=== PATIENT | female | born 1960 | race Caucasian/White ===

== ENCOUNTER 2023-12-15 09:14 | Outpatient (AMB) | payer MEDICAID, SELFPAY ==
--- NOTE | 2023-12-15 09:20 | MHC.OFFVIS ---
Intake Vital Signs 12/15/23 09:24 Height 5 ft 5 in Weight 125 lb 10.616 oz BMI 20.9 BP 142/67 H Blood Pressure Location Lt brachial Position Sitting Pulse 59 Intake Visit Reasons: Colonoscopy screening/ abd pain Intake Note: Pal presents in the office as a new patient for a colo screening w/ abdominal pains CC: States that she is having pains in the lower abdomen. She has constipation at times - She has hemmoroid so sometimes she has blood - internal and external. 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 She does not want anesthesia C/O lower abdominal pain for many years and hemorrhoids uses cream BM-1-2 QD- hemorrhoids cause bleeding Appetite is fair- pepcid - doesn't want medication or EGD- too afraid No nausea, vomiting hematemesis fever or PFSH Surgical History Hx of colonoscopy Family History (Updated 12/15/23 @ 10:01 by Iman Mcdonough PA-C) Unknown No problems noted. Social History Household Members Other:: lives alone Alcohol intake: never Patient Tobacco Use Status: Never used Tobacco Current occupational status: disabled Review of Systems Const All systems reviewed & are unremarkable except as noted in HPI and below ENT Denies dysphagia Card Denies chest pain and Denies dyspnea Resp Denies dyspnea GI Reports abdominal pain, Reports hematochezia, Reports constipation, Denies dysphagia, Reports heartburn, Denies nausea and Denies vomiting Musc Reports arthralgias Psych Reports anxiety Physical Exam Vital Signs: Last Vital Signs Pulse 59 12/15/23 09:24 BP 142/67 H 12/15/23 09:24 BMI result Body Mass Index 20.9 Const General: comfortable, acute distress and anxious Orientation/consciousness: patient oriented x3 Limitations: language barrier Eyes Sclerae: sclerae normal Resp Effort & Inspection: normal respiratory effort and able to speak in complete sentences Auscultation: clear to auscultation bilaterally, no rales, no rhonchi and no wheezes Cardio Rate: regular rate Rhythm: regular rhythm Heart sounds: S1 normal heart sound present and S2 normal heart sound present Skin General skin exam: no rashes or lesions noted Neuro General: patient oriented x3 Extrem General: Yes full ROM Psych Speech and movement: Slowed speech present (Psych) Affect: Anxious affect present Attitude: cooperative Assessment & Plan Assessment & Plan (1) Abdominal pain: Comment: Diffuse, Code(s): R10.9 - Unspecified abdominal pain Plan: cbc cmp (2) Chronic constipation: Code(s): K59.09 - Other constipation Plan: bowel regimen HFD colonoscopy (3) Heartburn: Comment: declined EGD- discussed risk- missing malignancy- reconsidered Discussed procedure rare risks Code(s): R12 - Heartburn Plan: monitor sx EGD- pt reconsidered (4) Hemorrhoids: Code(s): K64.9 - Unspecified hemorrhoids Plan: Avoid straining Maintain high-fiber Rectal cream Plan Colonoscopy EGD MG prep meds-ok Needs 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 Panel Today K59.09 - Other constipation, R10.9 - Unspecified abdominal pain, R12 - Heartburn Thyroid Stimulating Hormone Today R19.8 - Other specified symptoms and signs involving the digestive system and abdomen EGD/[place] [facility] - GI Use Only Today K59.09 - Other constipation, R10.9 - Unspecified abdominal pain, R12 - Heartburn Complete Blood Count Auto Diff Today K59.09 - Other constipation, R10.9 - Unspecified abdominal pain, R12 - Heartburn Medications: New docusate sodium (Colace) 200 mg (2 x 100 mg) PO BEDTIME 60 caps 5RF polyethylene glycol 3350 (Miralax) 17 grams PO DAILY 30 days 510 grams 6RF hydrocortisone 2.5% (Proctozone-HC) apply [place] BID prn 1 appl [place] BID PRN 30 grams 3RF hemorrhoids bisacodyl (Dulcolax (bisacodyl)) Day before procedure @ 12 noon Take 4 tablets by mouth followed by large glass of water 20 mg (4 x 5 mg) PO ONCE 1 day PRN 4 tabs 0RF colonoscopy prep Z12.11 - Encounter for screening for malignant neoplasm of colon polyethylene glycol 3350 (Miralax) Take as directed by mouth the day before your procedure. 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
[2023-12-15 09:24] VITALS: BP 142/67; PULSE 59; BMI 20.9
== END 2023-12-15 10:23 | disposition home or self-care (01) ==
PROVIDERS: PCP Physician Assistant Medical; Visit Provider Physician Assistant
DX: R10.9 Unspecified abdominal pain (principal); K59.09 Other constipation; R12 Heartburn; K64.9 Unspecified hemorrhoids
CPT/HCPCS: 99204

== ENCOUNTER → 2023-12-15 09:14 | Outpatient (BNVA) | payer MEDICAID, SELFPAY | PROVIDERS: PCP Physician Assistant Medical; Visit Provider Physician Assistant | DX: R10.9 Unspecified abdominal pain (principal); K59.09 Other constipation; R12 Heartburn; K64.9 Unspecified hemorrhoids | CPT/HCPCS: 99212 ==

== ENCOUNTER 2024-04-23 10:20 | Day surgery (SDC) | payer MEDICAID, SELFPAY ==
[2024-04-19 11:51] VITALS: BMI 20.8
[2024-04-23] MEDS: Lactated Ringers 1,000 ML 50 ML IVCONT (10:47)
--- NOTE | 2024-04-23 10:58 | P.CONAN_ITS ---
[facility] Active Problems Active Problems: All Active Problems Hemorrhoids (Acute) Arthritis (Acute) Heartburn (Acute) Chronic constipation (Acute) Abdominal pain (Acute) Family History Family History Unknown No problems noted. Surgical History Surgical History Hx of colonoscopy History of Problems with Anesthesia: No Social History Social History Household Members Other:: lives alone Alcohol intake: never Patient Tobacco Use Status: Never used Tobacco Are you DNR?: No Advance Directives: No Advance Directives Information Provided: Yes Nutrition Risks: No Nutritional Risk Current occupational status: disabled Meds Allergies Allergy/AdvReac Type Severity Reaction Status Date / Time No Known Allergies Allergy Verified 12/15/23 09:25 Active Medications: Current Medications Lactated Ringer's (Lr) 1,000 mls @ 50 mls/hr IVCONT .Q20H KIKI Last Admin: 04/23/24 10:47 Dose: 50 mls/hr Home Medications ?Medication ?Instructions ?Recorded ?Confirmed ?Last Taken ?Type celecoxib 50 mg capsule 50 mg PO BID 12/15/23 Unknown History famotidine 20 mg tablet (Pepcid) 20 mg PO QDAY 12/15/23 Unknown History Exam Height,Weight and Vital Signs: Height 5 ft 5 in Weight 56.699 kg Airway Mallampati Class: II (globally poor dentition) TM Dist: >3cm Neck ROM: Full Loose/Missing/Broken Teeth: Yes and Upper Heart: RRR Lungs: CTA Assessment and Plan Assessment Anesthesia Assessment: Anesthesia Plan Discussed and Chart Reviewed Final Anesthetic Review History of Problems with Anesthesia: No NPO: Yes ASA Class: II Final Preanesthetic Review: Meds/Allgs Chart Reviewed, Consent Obtained/Reviewed and Anes Risks/Benef Reviewed Patient Risk: Low Procedure Risk: Intermediate Anesthetic Plan Anesthetic Plan: MAC: Disposition: Standard PACU
--- NOTE | 2024-04-23 11:37 | MHC.SHP ---
Pre-Procedural Eval Section A - 24 Hr Update-Section A only Date of Service: 04/23/24 The patient is an INPATIENT: No The patient has been examined within 24 hours of the surgical procedure. The History & Physical has been completed within 30 days and I have reviewed it.: No Section B - Complete if H&P > 30 days Chief Complaint: Screening, abdominal pain, rectal bleeding Relevant Family History (Specify if Yes): No Relevant Social History: None Present Medications: see Short Stay Collaborative assessment Medical History: Significant History (Arthritis, chronic constipation) History of Previous Operations: Relevant previous surgery/procedure and date(s) (History of colonoscopy) Allergies: Allergies Allergy/AdvReac Type Severity Reaction Status Date / Time No Known Allergies Allergy Verified 12/15/23 09:25 Review of Systems Sugical H&P ROS: Negative: Constitution, Cardiovascular, Respiratory and Gastrointestinal Exam Surgical H&P Exam: Normal: Heart, Normal: Lungs, Normal: Extremities and Normal: Abdomen Plan Diagnosis/Plan: Unchanged I have reviewed the history and physical and performed a pertinent physical examination on my patient. No changes have occurred unless specified. Time Spent With Patient Time: Total time managing care of this patient today ____ minutes.
--- NOTE | 2024-04-23 12:20 | P.OPN-COLO_ITS ---
Colonoscopy Operative Note Operative Note Date of Service: 04/23/24 Narrative: FLEXIBLE TRANSORAL UPPER GASTROINTESTINAL ENDOSCOPY WITH BIOPSIES AND COLONOSCOPY TILL CECUM Pre-op diagnosis: Colon cancer screening, GERD, abdominal pain, rectal bleeding Post-op diagnosis: GERD, Gastritis, Diverticulosis, hemorrhoids Endoscopist:Isabelle Salmon MD Anesthesia:?MAC UPPER ENDOSCOPY Consent: Indications for the procedure and potential complications of bleeding, perforation, reaction to medications and missed diagnosis were discussed with the patient and informed consent was obtained. Instrument: Olympus GIF H 190 mid size upper endoscope Monitoring: Vital signs and clinical assessment, continuous EKG monitoring, Pulse oximetry, Carbon Dioxide monitoring and blood pressure monitoring were done throughout the procedure. Procedure: The patient was placed in the left lateral decubitis position and pre-procedure medications were administered and a bite block was placed. The endoscope was inserted into the mouth and advanced under direct vision to the third part of duodenum. A careful inspection was made as the upper endoscope was withdrawn including a retroflexed examination of the proximal stomach; Findings and interventions are described below. Findings: Larynx: Normal Esophagus: GE junction at 36 cms. A single 1 cms healing erosion ar GE junction. Irregular Z line with 1 cms tongue of possibe Leyva's - biopsied. Stomach: Mild gastric antral erythema - biopsies were obtained from the antrum. Grade 2 flap valve on retroflexed examination of the cardia. Duodenum: Normal bulb and descending duodenum Biopsies were obtained from descending duodenum to check for celiac sprue Intervention: Biopsies as noted above COLONOSCOPY PROCEDURE NOTE Instrument: Olympus PCF H 190 L variable stiffness pediatric colonoscope Monitoring: Vital signs and clinical assessment, intermittent blood pressure monitoring, continuous EKG monitoring, Pulse oximetry and Carbon Dioxide monitoring were done throughout the procedure. Please see anesthesia flowsheet. Colon withdrawl time was 14 minutes. Procedure: The patient was placed in the left lateral decubitis position and pre-procedure medications were administered. After a digital rectal examination of the ano-rectum, the video colonoscope was inserted into the rectum and advanced through the colon to the cecum. The colonoscope was slowly withdrawn in a retrograde panoramic fashion and the colon mucosa was carefully examined including a retroflexed view of the rectum. Findings and interventions are described below. Procedure Difficulty: Colon was long and there was some loop formation Findings: Terminal Ileum: Not evaluated Cecum: Normal Ascending Colon: Normal Transverse Colon: Normal Descending Colon: Normal Sigmoid Colon: Moderate diverticulosis Rectum: Normal Ano-rectum: Moderate internal hemorrhoids and perianal skin tags Colon preparation: Excellent, after some irrigation. [place] Bowel Preparation Scale Right colon; 3 Transverse colon: 3 Left colon; 3 (0 = Unprepared colon segment with mucosa not seen due to solid stool that cannot be cleared. 1 = Portion of mucosa of the colon segment seen, but other areas of the colon segment not well seen due to staining, residual stool and/or opaque liquid. 2 = Minor amount of residual staining, small fragments of stool and/or opaque liquid, but mucosa of colon segment seen well. 3 = Entire mucosa of colon segment seen well with no residual staining, small fragments of stool or opaque liquid) Impression and Post Procedure Diagnosis: Endoscopy Findings: ESOPHAGUS: GE junction at 36 cms. A single 1 cms healing erosion ar GE junction. Irregular Z line with 1 cms tongue of possibe Leyva's - biopsied. STOMACH: Mild gastric antral erythema - biopsies were obtained from the antrum. DUODENUM: Normal - biopsied to check for celiac sprue Colonoscopy Findings: No polyps were detected Moderate diverticulosis seen in the sigmoid colon Moderate hemorrhoids on retroflexed exam - likely source for rectal bleeding Plan: I will send a letter with biopsy results. Pt to schedule a FU appt with JOCE Marie. Repeat Colonoscopy in 10 years. Above findings were reviewed with the patient and relevant handouts were given and the discharge area. BIOPSIES SHOWED: A. Small bowel, biopsy: Small bowel mucosa with preserved villi and no specific change. B. Gastric antrum, biopsy: Gastric antral mucosa with minimal chronic inactive gastritis; negative for intestinal metaplasia and dysplasia. C. Esophagogastric junction, biopsy: Squamocolumnar mucosa with mild chronic inflammation; no intestinal metaplasia identified on initial levels; negative for dysplasia (see comment). Comment: (B): Immunostain for H. pylori pending; addendum to follow. (C): Additional level with AB/PAS stain pending; addendum to follow
[2024-04-23 12:53] VITALS: BP 112/54; PULSE 87; RESP 18; TEMP 36.7; O2SAT 99
[2024-04-23 13:08] VITALS: BP 107/57; PULSE 82; RESP 16; TEMP 36.6; O2SAT 98
== END 2024-04-23 14:09 | disposition home or self-care (01) ==
PROVIDERS: PCP Physician Assistant Medical; Visit Provider Internal Medicine Gastroenterology
PROC: (CPT 45378; principal; 2024-04-23 11:40)
DX: Z12.11 Encounter for screening for malignant neoplasm of colon (principal); K57.30 Diverticulosis of large intestine without perforation or abscess without bleeding; K64.8 Other hemorrhoids; K64.4 Residual hemorrhoidal skin tags; K59.09 Other constipation; K29.50 Unspecified chronic gastritis without bleeding; K22.89 Other specified disease of esophagus; K21.9 Gastro-esophageal reflux disease without esophagitis; Z79.899 Other long term (current) drug therapy
CPT/HCPCS: 45378; 43239; 88305; 88313; 88342; J2704

== ENCOUNTER → 2024-04-23 10:20 | Outpatient (BNV) | payer MEDICAID, SELFPAY | PROVIDERS: PCP Physician Assistant Medical; Visit Provider Internal Medicine Gastroenterology | DX: Z12.11 Encounter for screening for malignant neoplasm of colon (principal); K62.5 Hemorrhage of anus and rectum; K57.30 Diverticulosis of large intestine without perforation or abscess without bleeding; K64.8 Other hemorrhoids; K21.9 Gastro-esophageal reflux disease without esophagitis; K29.70 Gastritis, unspecified, without bleeding | CPT/HCPCS: 43239; 45378 ==